=== PATIENT | female | born 1950 | race Caucasian/White ===

== ENCOUNTER 2017-12-09 07:20 | Day surgery (SDC) | payer MEDICARE, OTHER ==
[~2017-12-09 07:20] MED LIST: Lactated Ringers 1,000 ML IV SCH; Sodium Chloride 0.9% 10 ML Syringe FLUSH PRN
[2017-12-09] MEDS ORDERED: Propofol 200 MG/20 ML SDV IV ONE (08:30)
--- NOTE | 2017-12-09 08:56 | PCM.OPNOTE ---
- General Post-Op/Procedure Note Date of Surgery/Procedure: 12/09/17 Operative Procedure(s): c scope Findings: sigmoid diverticulosis internal hemorrhoids Pre Op Diagnosis: hematochezia Post-Op Diagnosis: sigmoid diverticulosis. internal hemorrhoids Anesthesia Technique: JAYA Primary Surgeon: Tao Ulloa Anesthesia Provider: Adam Hawk Complications: None Condition: Good Free Text/Narrative:: see dictation
--- NOTE | 2017-12-09 10:01 | OR ---
DATE OF OPERATION: 12/09/2017 SURGEON: Tao Ulloa MD PROCEDURE PERFORMED: Colonoscopy. PREOPERATIVE DIAGNOSIS: Hematochezia. POSTOPERATIVE DIAGNOSIS: Internal hemorrhoids and sigmoid diverticulosis. INDICATIONS FOR PROCEDURE: This is a 67-year-old white female who was referred with a history of some bright red blood per rectum, appearing to be consistent with hemorrhoids. She was offered a scope to evaluate for any possible issues. DESCRIPTION OF PROCEDURE: After an excellent IV sedation was administered, digital rectal exam was performed. No marked abnormality was noted. Flexible colonoscope was inserted and advanced without difficulty to the cecum. The prep was excellent. The following findings were noted. Ascending colon, unremarkable. Transverse colon, unremarkable. Descending colon, unremarkable. Sigmoid, scattered diverticulosis. Rectum, unremarkable. On retroflexing the scope, there was some evidence of internal hemorrhoids, which appears to be the etiology of her bleeding. These appeared to be grade 1 and amenable to conservative therapy. /[id number] /KALEIGHL
== END 2017-12-09 10:20 | disposition home or self-care (01) ==
LOC: FB.SDS 07:20
PROVIDERS: ATTEND Surgery
DX: K92.1 Melena (principal); K64.0 First degree hemorrhoids; K57.30 Diverticulosis of large intestine without perforation or abscess without bleeding; I10 Essential (primary) hypertension; Z88.8 Allergy status to other drugs, medicaments and biological substances
CPT/HCPCS: 00812; 45378; J2704; J7120

== ENCOUNTER 2018-02-19 11:19 | Emergency (ER) | payer MEDICARE, OTHER ==
[2018-02-19] MEDS ORDERED: Ketorolac 30 MG/ML SDV IM ONE (11:30)
[2018-02-19] MEDS ORDERED: HYDROmorphone 2 MG/ML SDV IVPUSH ONE ×2 (11:39→12:25)
--- NOTE | 2018-02-19 11:57 | EDM.PDOC ---
ED HPI GENERAL MEDICAL PROBLEM - General Chief Complaint: Upper Extremity Injury/Pain Stated Complaint: FELL AND HURT LT SHOULDER Time Seen by Provider: 02/19/18 11:30 Source of Information: Reports: Patient, Family History Limitations: Reports: No Limitations - History of Present Illness INITIAL COMMENTS - FREE TEXT/NARRATIVE: Tasha comes into [facility] ED with a L shoulder injury that occurred last pm while on the deck. She apparently lost her balance when she tripped on the grill, landing onto L arm and shoulder. She has been unable to raise her L arm since. There is no numbness in the L hand. There is no reported neck pain. She has taken NSAIDs for comfort. Left Shoulder Pain Score (Numeric/FACES): 9 - Related Data Allergies Allergy/AdvReac Type Severity Reaction Status Date / Time No Known Allergies Allergy Verified 02/19/18 11:42 Home Meds: Home Meds hydroCHLOROthiazide [Hydrochlorothiazide] 25 mg PO DAILY 12/08/17 [History] Past Medical History HEENT History: Reports: Impaired Vision Cardiovascular History: Reports: Hypertension Gastrointestinal History: Reports: Other (See Below) Other Gastrointestinal History: SOME HEARTBURN, USES TUMS - Infectious Disease History Infectious Disease History: Reports: Rheumatic Fever - Past Surgical History GI Surgical History: Reports: EGD Female Surgical History: Reports: Tubal Ligation Social & Family History - Caffeine Use Caffeine Use: Reports: Coffee Review of Systems - Review of Systems Review Of Systems: ROS reveals no pertinent complaints other than HPI. ED EXAM, GENERAL - Physical Exam Exam: See Below Exam Limited By: Physical Impairment General Appearance: Alert, WD/WN, Moderate Distress, Obese Head: Atraumatic, Normocephalic Neck: Normal Inspection, Supple, Non-Tender, Full Range of Motion Respiratory/Chest: Lungs Clear, Normal Breath Sounds, Chest Non-Tender Cardiovascular: Regular Rate, Rhythm, No Murmur Back Exam: Normal Inspection Extremities: Limited Range of Motion (L shoulder: obvious crease below acromion , no ecchymoses; CMS intact) Neurological: Alert, Oriented, CN II-XII Intact, Normal Gait, No Motor/Sensory Deficits Psychiatric: Normal Affect, Normal Mood Skin Exam: Warm, Dry, Intact, Normal Color Lymphatic: No Adenopathy ED TRAUMA EXTREMITY PROCEDURES - Joint Reduction Site: Shoulder (L) Sedation: Other (Dilaudid 2 mg, Ativan 1 mg) Pre-Procedure NV Status: Normal Post-Procedure NV Status: Normal Technique: Traction/Counter Traction Number of Attempts: Other: (3) Post-Reduction Imaging: Completely Reduced, No Fracture Seen Joint Reduction Complications: No Course - Vital Signs Text/Narrative:: Following assessment at the [facility] ED, a L shoulder reduction was carried out after 3 attempts with Dilaudid 2 mg IV and Ativan 1 mg IV. A post reduction film was satisfactory. A shoulder immobilizer was applied. Patient tolerated procedure well. Last Recorded V/S: Last Vital Signs Temp 36.4 C 02/19/18 11:23 Pulse 69 02/19/18 14:01 Resp 18 02/19/18 14:01 BP 108/51 L 02/19/18 14:01 Pulse Ox 95 02/19/18 14:01 - Orders/Labs/Meds Orders: Active Orders 24 hr Category Date Time Status Shoulder Comp Lt [CR] Stat Exams 02/19/18 11:46 Taken Shoulder Comp Lt [CR] Stat Exams 02/19/18 12:34 Ordered Sodium Chloride 0.9% [Saline Flush] Med 02/19/18 11:39 Active 10 ml FLUSH ASDIRECTED PRN Peripheral IV Insertion Adult [OM.PC] Routine Oth 02/19/18 11:39 Ordered Medication Orders Sodium Chloride (Saline Flush) 10 ml FLUSH ASDIRECTED PRN PRN Reason: Keep Vein Open Last Admin: 02/19/18 12:35 Dose: 10 ml Admin: 02/19/18 12:25 Dose: 10 ml Admin: 02/19/18 12:05 Dose: 10 ml Meds: Medications Generic Name Dose Route Start Last Admin Trade Name Freq PRN Reason Stop Dose Admin Sodium Chloride 10 ml 02/19/18 11:39 02/19/18 12:35 Saline Flush FLUSH 10 ml ASDIRECTED PRN Administration Keep Vein Open Discontinued Medications Generic Name Dose Route Start Last Admin Trade Name Freq PRN Reason Stop Dose Admin Diazepam 5 mg 02/19/18 11:40 02/19/18 13:47 Valium IVPUSH 02/19/18 11:41 Not Given ONETIME ONE Hydromorphone HCl 1 mg 02/19/18 11:39 02/19/18 12:10 Dilaudid IVPUSH 02/19/18 11:40 1 mg ONETIME ONE Administration Hydromorphone HCl 1 mg 02/19/18 12:25 02/19/18 12:25 Dilaudid IVPUSH 02/19/18 12:26 1 mg ONETIME ONE Administration Ketorolac Tromethamine 30 mg 02/19/18 11:30 02/19/18 13:47 Toradol IM 02/19/18 11:31 Not Given ONETIME ONE Lorazepam Confirm 02/19/18 12:30 02/19/18 13:54 Ativan Administered 02/19/18 12:31 Not Given Dose 2 mg .ROUTE .STK-MED ONE Lorazepam 1 mg 02/19/18 12:30 02/19/18 12:35 Ativan IVPUSH 02/19/18 12:31 1 mg ONETIME ONE Administration Departure - Departure Time of Disposition: 15:50 Disposition: Home, Self-Care 01 Condition: Fair Clinical Impression: Dislocation of left shoulder joint Qualifiers: Encounter type: initial encounter Qualified Code(s): S43.005A - Unspecified dislocation of left shoulder joint, initial encounter - Discharge Information *PRESCRIPTION DRUG MONITORING PROGRAM REVIEWED*: Not Applicable *COPY OF PRESCRIPTION DRUG MONITORING REPORT IN PATIENT MIRANDA: Not Applicable Instructions: Shoulder Dislocation Referrals: PCP,None [Primary Care Provider] - Forms: ED Department Discharge - Problem List & Annotations (1) Dislocation of left shoulder joint SNOMED Code(s): 930456425 Code(s): S43.005A - UNSPECIFIED DISLOCATION OF LEFT SHOULDER JOINT, INIT ENCNTR Status: Acute Current Visit: Yes Annotation/Comment:: I suggested NSAIDs for pain, cool pack for comfort, and continue shoulder immobilizer until seen by PCP next week. Qualifiers: Encounter type: initial encounter Qualified Code(s): S43.005A - Unspecified dislocation of left shoulder joint, initial encounter - Problem List Review Problem List Initiated/Reviewed/Updated: Yes - My Orders Last 24 Hours: My Active Orders 02/19/18 11:39 Sodium Chloride 0.9% [Saline Flush] 10 ml FLUSH ASDIRECTED PRN Peripheral IV Insertion Adult [OM.PC] Routine 02/19/18 11:46 Shoulder Comp Lt [CR] Stat 02/19/18 12:34 Shoulder Comp Lt [CR] Stat - Assessment/Plan Last 24 Hours: My Active Orders 02/19/18 11:39 Sodium Chloride 0.9% [Saline Flush] 10 ml FLUSH ASDIRECTED PRN Peripheral IV Insertion Adult [OM.PC] Routine 02/19/18 11:46 Shoulder Comp Lt [CR] Stat 02/19/18 12:34 Shoulder Comp Lt [CR] Stat Plan: Follow up with PCP.
[2018-02-19] MEDS: Sodium Chloride 0.9% 10 ML Syringe FLUSH PRN ×3 (12:05→12:35)
[2018-02-19] MEDS ORDERED: LORazepam 2 MG/ML SDV IVPUSH ONE (12:30)
[2018-02-19] MEDS ORDERED: LORazepam 2 MG/ML SDV ONE (12:30)
--- NOTE | 2018-02-23 09:39 | CR ---
INDICATION: Post reduction. LEFT SHOULDER COMPLETE, POST REDUCTION: Three images of the left shoulder were obtained post reduction on the AP projection, and the final, labeled #3, showed what appears to be normal orientation of the humerus in the glenoid fossa. A true lateral was not obtained. MTDD
--- NOTE | 2018-02-23 09:42 | CR ---
INDICATION: Fell onto left shoulder last evening. LEFT SHOULDER, COMPLETE: Three views of the left shoulder revealed an anterior inferior dislocation of the glenohumeral joint. There appears to be an impaction type fracture at the greater tuberosity due to impingement of the inferior glenoid upon the humerus. This could be chronic. IMPRESSION: Glenohumeral dislocation. LOIDA
== END 2018-02-19 15:45 | disposition home or self-care (01) ==
LOC: FB.ED 11:19
DX: S43.005A Unspecified dislocation of left shoulder joint, initial encounter (principal); W01.10XA Fall on same level from slipping, tripping and stumbling with subsequent striking against unspecified object, initial encounter; Z79.899 Other long term (current) drug therapy
CPT/HCPCS: 23650; 73030; 96374; 96375; 99283; J1170; J2060; J7050

== ENCOUNTER 2018-02-24 07:47 | Emergency (ER) | payer MEDICARE, OTHER ==
--- NOTE | 2018-02-24 07:59 | EDM.PDOC ---
ED HPI GENERAL MEDICAL PROBLEM - General Stated Complaint: LEFT SHOULDER Time Seen by Provider: 02/24/18 07:47 Source of Information: Reports: Patient, Family History Limitations: Reports: No Limitations - History of Present Illness INITIAL COMMENTS - FREE TEXT/NARRATIVE: 67 y.o.w.f came with her to the ed due to left shoulder pain. Pt was seen this Wednesday here in the ed for a left sided shoulder dislocation, which was reduced here in the ed. Pt was lifting her left arm today, felt a PUP and was not able to move her left shoulder then, due to pain. No direct trauma. No N /V/D no dizziness or any other acute medical issues. BP 131/61 pulse 71 RR 18 Pulse ox 100% on RA Temp 36.1 Onset Date: 02/24/18 Onset Time: 07:00 Duration: Hour(s): Location: Reports: Upper Extremity, Left Quality: Reports: Ache, Burning, Dull, Pressure Severity: Moderate Improves with: Reports: Medication, Rest Worsens with: Reports: Movement Context: Reports: Other Associated Symptoms: Reports: No Other Symptoms Left Shoulder Pain Score (Numeric/FACES): 2 - Related Data Allergies Allergy/AdvReac Type Severity Reaction Status Date / Time No Known Allergies Allergy Verified 02/19/18 11:42 Home Meds: Home Meds hydroCHLOROthiazide [Hydrochlorothiazide] 25 mg PO DAILY 12/08/17 [History] Past Medical History HEENT History: Reports: Impaired Vision Cardiovascular History: Reports: Hypertension Gastrointestinal History: Reports: Other (See Below) Other Gastrointestinal History: SOME HEARTBURN, USES TUMS Musculoskeletal History: Reports: Other (See Below) Other Musculoskeletal History: left shoulder dislocation - Infectious Disease History Infectious Disease History: Reports: Rheumatic Fever - Past Surgical History GI Surgical History: Reports: EGD Female Surgical History: Reports: Tubal Ligation Social & Family History - Family History Family Medical History: Noncontributory - Caffeine Use Caffeine Use: Reports: Coffee Review of Systems - Review of Systems Review Of Systems: See Below Constitutional: Reports: No Symptoms Eyes: Reports: No Symptoms Ears: Reports: No Symptoms Nose: Reports: No Symptoms Mouth/Throat: Reports: No Symptoms Respiratory: Reports: No Symptoms Cardiovascular: Reports: No Symptoms GI/Abdominal: Reports: No Symptoms Genitourinary: Reports: No Symptoms Musculoskeletal: Reports: Shoulder Pain (left ) Skin: Reports: No Symptoms Neurological: Reports: No Symptoms Psychiatric: Reports: No Symptoms ED EXAM, GENERAL - Physical Exam Exam: See Below Exam Limited By: No Limitations General Appearance: Alert, WD/WN, Mild Distress Eye Exam: Bilateral Eye: Normal Inspection Ears: Normal External Exam Ear Exam: Bilateral Ear: Auricle Normal Nose: Normal Inspection, Normal Mucosa Throat/Mouth: Normal Inspection, Normal Lips, Normal Gums, Normal Oropharynx, Normal Voice, No Airway Compromise Head: Atraumatic, Normocephalic Neck: Normal Inspection, Supple, Non-Tender Respiratory/Chest: No Respiratory Distress, Lungs Clear, Normal Breath Sounds, No Accessory Muscle Use, Chest Non-Tender Cardiovascular: Normal Peripheral Pulses, Regular Rate, Rhythm, No Edema, No Gallop, No JVD, No Murmur, No Rub Peripheral Pulses: 2+: Popliteal (R) GI/Abdominal: Normal Bowel Sounds, Soft, Non-Tender, No Organomegaly, No Distention, No Abnormal Bruit, No Mass, Pelvis Stable (Female) Exam: Deferred Rectal (Female) Exam: Deferred Back Exam: Normal Inspection, Full Range of Motion Extremities: No Pedal Edema, Normal Capillary Refill, Limited Range of Motion ( left shoulder with deformity) Neurological: Alert, Oriented, CN II-XII Intact, Normal Cognition, Normal Gait, No Motor/Sensory Deficits Psychiatric: Normal Affect, Normal Mood Skin Exam: Warm, Dry, Intact, Normal Color, No Rash Lymphatic: No Adenopathy ED TRAUMA PROCEDURES - Joint Reduction Site: Shoulder (L) Sedation: Conscious Sedation (doen by anesthesia) Pre-Procedure NV Status: Normal Post-Procedure NV Status: Normal Technique: Traction/Counter Traction Number of Attempts: 1 Post-Reduction Imaging: Completely Reduced Joint Reduction Complications: No Course - Vital Signs Text/Narrative:: 67 y.o.w.f came with her to the ed due to left shoulder pain. Pt was seen this Wednesday here in the ed for a left sided shoulder dislocation, which was reduced here in the ed. Pt was lifting her left arm today, felt a PUP and was not able to move her left shoulder then, due to pain. No direct trauma. No N /V/D no dizziness or any other acute medical issues. BP 131/61 pulse 71 RR 18 Pulse ox 100% on RA Temp 36.1 PE; 67 y.o.w.f with left shoulder pain Imagin) Left sided post shoulder dislocation 2) 2nd X Ray: L Shoulder in place Procedure: Please see note above Impression: Left shoulder dislocation, reduced in the ed Tx: Shoulder immobilizer applied Reexam: Improved Plan: D/C with instructions Last Recorded V/S: Last Vital Signs Temp 36.5 C 02/24/18 09:15 Pulse 68 02/24/18 09:05 Resp 16 02/24/18 09:15 BP 131/61 02/24/18 09:15 Pulse Ox 100 02/24/18 09:15 - Orders/Labs/Meds Orders: Active Orders 24 hr Category Date Time Status Peripheral IV Care [RC] . DIRECTED Care 02/24/18 08:30 Active Shoulder 1V Lt [CR] Stat Exams 02/24/18 09:03 Taken Shoulder Comp Lt [CR] Stat Exams 02/24/18 07:53 Taken Sodium Chloride 0.9% [Normal Saline] 1,000 ml Med 02/24/18 08:30 Active IV ASDIRECTED Medication Orders Sodium Chloride (Normal Saline) 1,000 mls @ 150 mls/hr IV ASDIRECTED OSCAR Last Admin: 02/24/18 08:40 Dose: 150 mls/hr Meds: Medications Generic Name Dose Route Start Last Admin Trade Name Freq PRN Reason Stop Dose Admin Sodium Chloride 1,000 mls @ 150 mls/hr 02/24/18 08:30 02/24/18 08:40 Normal Saline IV 150 mls/hr ASDIRECTED OSCAR Administration Departure - Departure Time of Disposition: 09:14 Disposition: Home, Self-Care 01 Condition: Good Clinical Impression: Shoulder dislocation, recurrent Qualifiers: Laterality: left Qualified Code(s): M24.412 - Recurrent dislocation, left shoulder - Discharge Information Referrals: Jovani Light MD [Primary Care Provider] - Ander Langley DO [Physician] - Additional Instructions: Please leave the shoulder immobilizer on till you see Dr. Langley this Wednesday. Please call today for an apointment, Please apply Ice to the left shoulder, Motrin for pain. Please come back if your symptoms get worse acutely - My Orders Last 24 Hours: My Active Orders 02/24/18 07:53 Shoulder Comp Lt [CR] Stat 02/24/18 08:30 Peripheral IV Care [RC] . DIRECTED Sodium Chloride 0.9% [Normal Saline] 1,000 ml IV ASDIRECTED 02/24/18 09:03 Shoulder 1V Lt [CR] Stat - Assessment/Plan Last 24 Hours: My Active Orders 02/24/18 07:53 Shoulder Comp Lt [CR] Stat 02/24/18 08:30 Peripheral IV Care [RC] . DIRECTED Sodium Chloride 0.9% [Normal Saline] 1,000 ml IV ASDIRECTED 02/24/18 09:03 Shoulder 1V Lt [CR] Stat
[2018-02-24] MEDS ORDERED: Sodium Chloride 0.9% 1,000 ML IV SCH (08:30)
[2018-02-24] MEDS ORDERED: Propofol 200 MG/20 ML SDV IV ONE (08:45)
[2018-02-24] MEDS ORDERED: Lidocaine 1% 30 ML SDV INJECT ONE (08:45)
--- NOTE | 2018-02-25 09:43 | CR ---
INDICATION: Post dislocation. Patient reached above head this a.m., dislocated 5 days ago. LEFT SHOULDER, COMPLETE: Three views of the left shoulder reveal an anterior inferior dislocation at the glenohumeral joint. A definite fracture site is not identified. IMPRESSION: Dislocation. MTDD
--- NOTE | 2018-02-25 09:44 | CR ---
INDICATION: Post reduction. LEFT SHOULDER, ONE VIEW: A single post reduction supine portable view of the left shoulder was obtained in the AP projection and revealed an appearance of satisfactory reduction of the glenohumeral joint dislocation. No definite fracture site was identified. However, there appears to be probable infraction at the greater tuberosity. A lateral view was not obtained. MTDD
== END 2018-02-24 09:27 | disposition home or self-care (01) ==
LOC: FB.ED 07:47
DX: M24.412 Recurrent dislocation, left shoulder (principal); I10 Essential (primary) hypertension; Z79.899 Other long term (current) drug therapy
CPT/HCPCS: 23655; 73020; 73030; 96361; 96374; 99152; 99283; J2704; J7030; 23700; 96360